=== PATIENT | female | born 2005 | race Two or more races ===

== ENCOUNTER 2025-01-06 09:37 | Emergency (ER) | payer MEDICAID ==
[~2025-01-06] VITALS: Ht 167.6 cm; Wt 105.0 kg
--- NOTE | 2025-01-06 09:57 | ED.PDOC ---
GI ASSESSMENT HPI Comments 19 y.o female presents to the ED for a chief complaint of abdominal pain associated with hot/cold flashes, chills, nausea and vomiting that started this morning. Patient describes pain as sharp, constant, localized to the upper region and is non radiating. She mentions that pain is a 5/10 on the pain scale however increases to a 10/10 spontaneously. She recently got on Monjuaro Injections for weight loss and her first injection was 3 days ago. She denies any diarrhea, fever, chest pain or recent illness. Chief Complaint: Abdominal Pain Time Seen by MD: 09:52 Primary Care Provider: LUISITO Reviewed Notes: Nurses Notes, Medications, Allergies Allergies: Coded Allergies: NO KNOWN ALLERGIES (Unverified , 07/09/15) Home Meds Active Scripts Pantoprazole Sodium Sesquihydr (Protonix) 40 Mg Tab, 40 MG PO DAILY, #30 TAB Prov:ARI SOTO MD 01/06/25 Ondansetron Odt 4MG Tab (ZOFRAN PO) 4 Mg Tb, 4 MG PO Q8HP PRN for 7 Days, #21 TAB ODT TAB-DISSOLVE IN MOUTH, THEN SWALLOW Prov:ARI SOTO MD 01/06/25 Information Source: Patient Mode of Arrival: Ambulatory Timing: Hours Duration: Since onset Quality: Sharp Vomitus: Hard Stool: Normal Severity: Moderate Recent: Other Recent Hx of: None Pain Location: Epigastric Modifying Factors: Nothing Associated sign and symptoms: Nausea, Vomiting, Abdominal Pain Past Medical History PAST MEDICAL HISTORY: Denies Surgical History: Denies all surgeries NETWORK CONSULTANT History: No Pertinent NETWORK CONSULTANT History Family History Family History: Family hx of DM, Family hx of Cancer Social History Smoker: Cigarettes Alcohol: Occasionally Drugs: Marijuana Lives In: Home Constitutional: reports: chills; denies: diaphoresis, fatigue, fever, malaise, sweats, weakness, others EENTM: denies: blurred vision, double vision, ear bleeding, ear discharge, ear drainage, ear pain, ear ringing, eye pain, eye redness, hearing loss, mouth pain, mouth swelling, nasal discharge, nose bleeding, nose congestion, nose pain, photophobia, tearing, throat pain, throat swelling, voice changes, others Respiratory: denies: cough, hemoptysis, orthopnea, SOB at rest, shortness of breath, SOB with excertion, stridor, wheezing, others Cardiovascular: denies: chest pain, dizzy spells, diaphoresis, Dyspnea on exertion, edema, irregular heart beat, left arm pain, lightheadedness, palpitations, PND, syncope, others Gastrointestinal: reports: abdominal pain, nausea, vomiting; denies: abdomen distended, blood streaked bowels, constipated, diarrhea, dysphagia, difficulty swallowing, hematemesis, melena, poor appetite, poor fluid intake, rectal bleeding, rectal pain, others Genitourinary: denies: abnormal vagina bleeding, burning, dyspareunia, dysuria, flank pain, frequency, hematuria, incontinence, pain, , vagina discharge, urgency, others Neurological: denies: dizziness, fainting, headache, left sided numbness, left sided weakness, numbness, paresthesia, pre-existing deficit, right sided numbness, right sided weakness, seizure, speech problems, tingling, tremors, weakness, others Musculoskeletal: denies: back pain, gout, joint pain, joint swelling, muscle pain, muscle stiffness, neck pain, others Integumetry: denies: bruises, change in color, change in hair/nails, dryness, laceration, lesions, lumps, rash, wounds, others Allergic/Immunocompromised: denies: Difficulty Healing, Frequent Infections, Hives, Itching, others Endocrine: denies: excessive hunger, excessive sweating, excessive thirst, excessive urination, flushing, intolerance to cold, intolerance to heat, unexplained weight gain, unexplained weight loss, others Psychiatric: denies: anxiety, bipolar disorder, depression, hopeless, panic disorder, schizophrenia, sleepless, suicidal, others All Other Systems: Reviewed and Negative Physical Exam General Appearance: Mild Distress HEENT: Normal ENT Inspection, Pharynx Normal, TMs Normal Neck: Full Range of Motion, Non-Tender, Normal, Normal Inspection Respiratory: Chest Non-Tender, Lungs Clear, No Accessory Muscle Use, No Respiratory Distress, Normal Breath Sounds Cardiovascular: No Edema, No JVD, No Murmur, No Gallop, Normal Peripheral Pulses, Regular Rate/Rhythm Breast Exam: Deferred Gastrointestinal: Epigastric, No Organomegaly, No Pulsatile Mass, Normal Bowel Sounds, Soft, Tenderness Genitalia: Deferred Pelvic: Deferred Rectal: Deferred Extremities: No calf tenderness, Normal capillary refill, Normal inspection, Normal range of motion, Non-tender, No pedal edema Musculoskeletal : Apperance: Normal Neurologic: Alert, die maker stamping II-XII nml as Tested, No Motor Deficits, Normal Affect, Normal Mood, No Sensory Deficits Cerebellar Function: Normal Reflexes: Normal Skin: Dry, Normal Color, Warm Lymphatic: No Adenopathy Was a procedure done? Was a procedure done?: No GI differential Dx Differential Diagnosis: Gastroenteritis, Dehydration, Electrolyte Imbalance, Food Poisoning, Viral X-Ray, Labs, Meds, VS Vital Signs Date Time Temp Pulse Resp B/P (MAP) Pulse Ox O2 Delivery O2 Flow Rate FiO2 01/06/25 10:45 71 18 125/72 01/06/25 10:36 98.1 71 18 125/72 (89) 98 98.1 01/06/25 09:39 97.3 75 19 115/70 96 97.3 Lab Test 01/06/25 10:13 Range/Units White Blood Count 11.3 H 4.4-10.8 10^3/uL Red Blood Count 5.12 4.0-5.20 10^6/uL Hemoglobin 15.4 12.2-16.2 g/dL Hematocrit 44.8 36.0-46.0 % Mean Corpuscular Volume 87.5 80.0-100.0 fL Mean Corpuscular Hemoglobin 30.1 28.0-32.0 pg Mean Corpuscular Hemoglobin Concent 34.4 32.0-36.0 g/dL Red Cell Distribution Width 13.1 11.8-14.3 % Platelet Count 337 140-450 10^3/uL Mean Platelet Volume 9.1 6.9-10.8 fL Neutrophils (%) (Auto) 81.7 H 37.0-80.0 % Lymphocytes (%) (Auto) 10.4 10.0-50.0 % Monocytes (%) (Auto) 7.4 0.0-12.0 % Eosinophils (%) (Auto) 0.1 0.0-7.0 % Basophils (%) (Auto) 0.4 0.0-2.0 % Neutrophils # (Auto) 9.3 H 1.6-8.6 10 ^3/uL Lymphocytes # (Auto) 1.2 0.4-5.4 10 ^3/uL Monocytes # (Auto) 0.8 0-1.3 10 ^3/uL Eosinophils # (Auto) 0 0-0.8 10 ^3/uL Basophils # (Auto) 0 0-0.2 10 ^3/uL Nucleated Red Blood Cells 0.0 % Sodium Level 138 136-145 mmol/L Potassium Level 3.1 L 3.5-5.1 mmol/L Chloride Level 100 98-107 mmol/L Carbon Dioxide Level 24 20-31 mmol/L Anion Gap 14 5-15 Blood Urea Nitrogen 9 9-23 mg/dL Creatinine 0.93 0.550-1.02 mg/dL Glomerular Filtration Rate Calc 90 >90 mL/min BUN/Creatinine Ratio 9.7 L 10.0-20.0 Serum Glucose 103 74-106 mg/dL Calcium Level 10.3 8.7-10.4 mg/dL Lipase 29 12-53 U/L Current Medications Medications (Trade) Dose Ordered Sig/Davie Route Start Time Stop Time Status Last Admin Sodium Chloride 1,000 ml @ 1,000 mls/hr Q1H ONCE IVB 01/06/25 10:00 01/06/25 10:59 DC 01/06/25 10:40 Morphine Sulfate 4 mg ONCE ONCE IV 01/06/25 10:00 01/06/25 10:01 DC 01/06/25 10:45 Pantoprazole Sodium (Protonix) 40 mg ONCE ONCE IV 01/06/25 10:00 01/06/25 10:01 DC 01/06/25 10:44 Prochlorperazine Edisylate (Compazine Inj) 10 mg ONCE ONCE IV 01/06/25 10:00 01/06/25 10:01 DC 01/06/25 10:44 Ultrasound of the gallbladder is negative at this time The patient was given a 1 L bolus of normal saline The patient was given morphine 4 mg IV push for the pain The patient was given Protonix 40 mg IV push The patient was given Compazine 10 mg IV push for the vomiting The patient's CBC shows an elevated white blood cell count of 11.3 which is most likely secondary to the vomiting The lipase is within normal limits. At this time, the patient will be discharged with a prescription of Protonix and Zofran The patient will return to the emergency department's condition worsens. Images Reviewed?: Images reviewed and evaluated by me Time of 1ST Reevaluation: 09:57 Reevaluation 1ST: Unchanged Patient Education/Counseling: Diagnosis, Treatment, Prognosis, Need For Follow Up Family Education/Counseling: No Family Present SEPSIS Sepsis Screen Date sepsis recognized/suspect: Jan 06, 2025 Time Sepsis recognized/suspect: 938 Recent Procedure: No On Antibiotic Therapy: No Respiratory Rate >20: No Heart Rate >90: No Temp<36 C (96.8 F) or >38.3 C: No SBP <90 or MAP <65 mmHG: No New Acute Mental Status Change: No Is the patient on CPAP, BIPAP,: No Physician Orders Urinalysis (01/06/25 09:54) Heplock Iv (01/06/25 09:54) Gallbladder (01/06/25 09:54) Vital Signs Date Time Temp Pulse Resp B/P (MAP) Pulse Ox O2 Delivery O2 Flow Rate FiO2 01/06/25 10:45 71 18 125/72 01/06/25 10:36 98.1 71 18 125/72 (89) 98 98.1 01/06/25 09:39 97.3 75 19 115/70 96 97.3 Laboratory Tests Test 01/06/25 10:13 White Blood Count 11.3 10^3/uL (4.4-10.8) H Medications Medications Dose Ordered Sig/Davie Route Start Time Stop Time Status Last Admin Dose Admin Morphine Sulfate 4 mg ONCE ONCE IV 01/06/25 10:00 01/06/25 10:01 DC 01/06/25 10:45 Pantoprazole Sodium 40 mg ONCE ONCE IV 01/06/25 10:00 01/06/25 10:01 DC 01/06/25 10:44 Prochlorperazine Edisylate 10 mg ONCE ONCE IV 01/06/25 10:00 01/06/25 10:01 DC 01/06/25 10:44 Sodium Chloride 1,000 ml @ 1,000 mls/hr Q1H ONCE IVB 01/06/25 10:00 01/06/25 10:59 DC 01/06/25 10:40 Departure 1 Departure Time of Disposition: 11:43 Impression: Primary Impression: Vomiting Qualified Codes: R11.2 - Nausea with vomiting, unspecified Additional Impression: Medication reaction Qualified Codes: T50.905A - Adverse effect of unspecified drugs, medicaments and biological substances, initial encounter Disposition: HOME / SELF CARE / HOMELESS Condition: Fair e-Prescriptions Pantoprazole Sodium Sesquihydr (Protonix) 40 Mg Tab 40 MG PO DAILY, #30 TAB Prov: ARI SOTO MD 01/06/25 Ondansetron Odt 4MG Tab (ZOFRAN PO) 4 Mg Tb 4 MG PO Q8HP PRN for 7 Days, #21 TAB ODT TAB-DISSOLVE IN MOUTH, THEN SWALLOW Prov: ARI SOTO MD 01/06/25 Discharged With: Self Critical Care Note Critical Care Time?: No Stability Stability form required: No I personally scribed for ARI SOTO MD ([email or web address]) on 01/06/25 at 09:57. Electronically submitted by Tianna Mann ([facility]). ARI SOTO MD Jan 06, 2025 09:57
[2025-01-06 10:28] LABS: Hematocrit 44.8 % (36.0-46.0); Hemoglobin 15.4 g/dL (12.2-16.2); Mean Corpuscular Hemoglobin 30.1 pg (28.0-32.0); Mean Corpuscular Volume 87.5 fL (80.0-100.0); Nucleated Red Blood Cells % 0.0 %
[2025-01-06 10:37] LABS: Chloride 100 mmol/L (98-107); Sodium 138 mmol/L (136-145)
[2025-01-06 10:38] LABS: Anion Gap 14 (5-15); Carbon Dioxide 24 mmol/L (20-31)
[2025-01-06 10:39] LABS: Calcium 10.3 mg/dL (8.7-10.4)
[2025-01-06] MEDS: SODIUM CHLORIDE 0.9% 1,000 ML IVB ONE (10:40)
[2025-01-06 10:43] LABS: BUN/Creatinine Ratio 9.7 (10.0-20.0); Blood Urea Nitrogen 9 mg/dL (9-23); Glucose 103 mg/dL (74-106)
[2025-01-06 10:44] LABS: Lipase 29 U/L (12-53)
[2025-01-06] MEDS: PANTOPRAZOLE 40 MG/10 ML VIAL INJ IV ONE (10:44)
[2025-01-06] MEDS: PROCHLORPERAZINE EDISYLATE 5 MG/ML 2ML VIAL IV ONE (10:44)
[2025-01-06] MEDS: MORPHINE SULFATE 4 MG/ML SYR/VIAL IV ONE (10:45)
[2025-01-06 10:54] LABS: Potassium 3.1 mmol/L (3.5-5.1)
--- NOTE | 2025-01-06 11:34 | DVH ---
INDICATION: pain TECHNIQUE: Multiple real-time sonographic images were obtained of the right upper quadrant. COMPARISON: None FINDINGS: The liver demonstrates homogeneous echotexture without focal mass lesions. The liver measures 15.8 cm. There is no intrahepatic or extrahepatic ductal dilatation. The common duct measures 0.6 cm. The gallbladder is without evidence of stone or sludge. The gallbladder wall measures 0.2 cm and is within normal limits. The right kidney measures 11.3 cm. The right kidney is normal in contour, size, and shape. The echogenicity is normal. There is no hydronephrosis. The pancreas is not well visualized due to overlying bowel gas. IMPRESSION: Unremarkable right upper quadrant sonogram.
[2025-01-06] MEDS ORDERED: ZOFR4T PO (11:46)
[2025-01-06] MEDS ORDERED: PANT40TA2 PO (11:46)
[2025-01-06 11:53] VITALS: BP 127/77; PULSE 73; RESP 18; TEMP 97.8; O2SAT 97
[2025-01-06] MEDS: POTASSIUM CHL 20 Meq TABLET PO ONE (12:04)
== END 2025-01-06 12:55 | disposition home or self-care (01) ==
LOC: ER 09:37
DX: R11.10 Vomiting, unspecified (principal); T50.905A Adverse effect of unspecified drugs, medicaments and biological substances, initial encounter; F17.210 Nicotine dependence, cigarettes, uncomplicated; Z79.899 Other long term (current) drug therapy; X58.XXXA Exposure to other specified factors, initial encounter
CPT/HCPCS: 36415; 76705; 80048; 83690; 85025; 96361; 96374; 96375; 99285; J0780; J2270; J2470; J7030